=== PATIENT | male | born 1965 | race African-American/Black ===

== ENCOUNTER 2020-08-03 07:01 | Inpatient (IN) | payer SELFPAY ==
[2020-08-03 07:40] LABS: Absolute Lymphocytes (CBC) 2.2 K/uL (0.7-4.9); Basophils % 0.5 % (0-1.3); Lymphocytes % 29.6 % (15.3-44.8); MPV 8.1 fL (7.6-11.3); RBC Red Blood Cell Count 5.55 M/uL (4.33-5.43)
[2020-08-03] MEDS ORDERED: NITROGLYCERIN 0.4 MG/TAB SL ONE ×2 (07:47→08:31)
[2020-08-03] MEDS ORDERED: NA CHLORIDE 0.9% 500 ML ONE (07:52)
[2020-08-03 07:54] LABS: ALT/SGPT 30 U/L (12-78); Albumin 3.8 g/dL (3.4-5.0); Alkaline Phosphatase 77 U/L (45-117); BUN Blood Urea Nitrogen 19 mg/dL (7-18); Bicarbonate 23 mmol/L (21-32); Bilirubin Direct 0.1 mg/dL (0-0.2); Bilirubin Total 0.7 mg/dL (0.2-1.0); Glucose Level 113 mg/dL (74-106); NT PRO-BNP 739 pg/mL (<125); Potassium 3.8 mmol/L (3.5-5.1); Protein, Total 8.1 g/dL (6.4-8.2); Sodium Level 141 mmol/L (136-145); Troponin (Emerg Dept Use Only) < 0.02 ng/mL (0.0-0.045)
[2020-08-03 07:55] LABS: AST/SGOT 22 U/L (15-37); Magnesium 2.2 mg/dL (1.8-2.4)
--- NOTE | 2020-08-03 08:32 | RAD REPORT ---
EXAM DESCRIPTION: RAD - Chest Single View - 08/03/2020 7:48 am CLINICAL HISTORY: CHEST PAIN Chest pain. COMPARISON: No comparisons FINDINGS: Portable technique limits examination quality. The lungs are grossly clear. The heart is normal in size. No displaced fractures. IMPRESSION: No acute intrathoracic process suspected.
--- NOTE | 2020-08-03 08:32 | ER ---
Nurse's Notes [facility] Name: Ángel Benítez Age: 55 yrs Sex: Male : 1965 Arrival Date: 08/03/2020 Time: 07:10 Bed 5 Private MD: Diagnosis: Chest pain, unspecified Presentation: 08/03 07:14 Chief complaint: EMS states: they were toned out for report of pt with chest pain and bb dizziness, pt was diaphoretic on their arrival. Coronavirus screen: At this time, the client does not indicate any symptoms associated with coronavirus-19. Ebola Screen: No symptoms or risks identified at this time. Initial Sepsis Screen: Does the patient meet any 2 criteria? No. Patient's initial sepsis screen is negative. Does the patient have a suspected source of infection? No. Patient's initial sepsis screen is negative. Risk Assessment: Do you want to hurt yourself or someone else? Patient reports no desire to harm self or others. Onset of symptoms was August 03, 2020. Care prior to arrival: IV initiated. 20 GA, in the left antecubital area, Glucose check: 89. 07:14 Method Of Arrival: EMS: [facility] bb 07:14 Acuity: TOMÁS 3 bb Historical: - Allergies: 07:16 No Known Allergies; bb - Home Meds: 07:16 None [Active]; bb - PMHx: 07:16 None; bb - Immunization history:: Adult Immunizations up to date. - Social history:: Smoking status: unknown. - Family history:: not pertinent. - Hospitalizations: : No recent hospitalization is reported. Screenin:44 Abuse screen: Denies threats or abuse. Denies injuries from another. Nutritional sv screening: No deficits noted. Tuberculosis screening: No symptoms or risk factors identified. Fall Risk None identified. Assessment: 07:34 General: Appears in no apparent distress. comfortable, slender, well developed, sv Behavior is calm, cooperative, appropriate for age. Pain: Denies pain. Neuro: Level of Consciousness is awake, alert, obeys commands, Oriented to person, place, time, situation, Gait is steady. Cardiovascular: Patient's skin is warm and dry. Pulses are 3+ in right radial artery and left radial artery Rhythm is sinus rhythm. Respiratory: Airway is patent Respiratory effort is even, unlabored, Respiratory pattern is regular, symmetrical. Derm: Skin is pink, warm \\T\\ dry. 08:16 Reassessment: Patient appears in no apparent distress at this time. No changes from sv previously documented assessment. Patient and/or family updated on plan of care and expected duration. Pain level reassessed. Patient is alert, oriented x 3, equal unlabored respirations, skin warm/dry/pink. Patient denies pain at this time. 09:13 Reassessment: Patient appears in no apparent distress at this time. No changes from sv previously documented assessment. Patient and/or family updated on plan of care and expected duration. Pain level reassessed. Patient is alert, oriented x 3, equal unlabored respirations, skin warm/dry/pink. Patient denies pain at this time. 10:40 Reassessment: Patient appears in no apparent distress at this time. No changes from sv previously documented assessment. Patient and/or family updated on plan of care and expected duration. Pain level reassessed. Patient is alert, oriented x 3, equal unlabored respirations, skin warm/dry/pink. Vital Signs: 07:14 BP 135 / 104; Pulse 74; Resp 16 S; Temp 97.7(O); Pulse Ox 98% on R/A; Weight 85.73 kg bb (R); Height 6 ft. 3 in. (190.50 cm) (R); Pain 2/10; 07:28 BP 118 / 89; Pulse 67; Resp 16; Temp 97.8(TE); Pulse Ox 100% on 2 lpm NC; mh5 08:07 BP 164 / 107; Pulse 65; Resp 16; Pulse Ox 100% ; Pain 0/10; sv 08:27 BP 87 / 60; Pulse 65; Resp 13; Pulse Ox 95% ; sv 09:02 BP 160 / 116; Pulse 63; Resp 16; Pulse Ox 97% on 2 lpm NC; sv 10:40 BP 159 / 117; Pulse 64; Resp 16; Pulse Ox 97% ; sv 11:30 BP 176 / 114; Pulse 66; Resp 16; Pulse Ox 100% on 2 lpm NC; sv 07:14 Body Mass Index 23.62 (85.73 kg, 190.50 cm) bb ED Course: 07:05 EKG completed in triage. Results shown to . bb 07:10 Patient arrived in ED. bb 07:14 Teo Ulrich MD is Attending Physician. rn 07:16 Triage completed. bb 07:16 Arm band placed on Patient placed in an exam room, on a stretcher, on vision mixer, bb on pulse oximetry. 07:24 Keyana Maria, RN is Primary Nurse. sv 07:26 Basic Metabolic Panel Sent. mh5 07:26 CBC with Diff Sent. mh5 07:26 LFT's Sent. mh5 07:26 Magnesium Sent. mh5 07:26 NT PRO-BNP Sent. mh5 07:27 Patient has correct armband on for positive identification. Placed in gown. Bed in low mh5 position. Call light in reach. Side rails up X2. Warm blanket given. radar technician on. Pulse ox on. NIBP on. 07:27 Troponin (emerg Dept Use Only) Sent. mh5 07:27 Initial lab(s) drawn, by me, sent to lab. Maintain EMS IV. Dressing intact. Good blood mh5 return noted. Site clean \\T\\ dry. 07:43 X-ray(s) taken. Oxygen administration via nasal cannula \\T\\ 2L/min. sv 07:46 Awaiting lab results, Awaiting radiology results. sv 08:18 XRAY Chest (1 view) Sent. sv 08:31 Michael Ulrich MD is Hospitalizing Provider. rn 09:09 CT Aorta for Dissection Sent. sv 09:46 COVID-19 : Document "Date of Symptom Onset" if Symptomatic. Sent. sv 10:03 CORONAVIRUS Sent. sv 10:40 Awaiting lab results. sv 12:41 No provider procedures requiring assistance completed. Patient admitted, IV remains in sv place. intact. Administered Medications: 07:34 Drug: NS 0.9% 500 ml Route: IV; Rate: bolus; Site: left antecubital; sv 08:00 Follow up: Response: No adverse reaction; IV Status: Completed infusion; IV Intake: sv 500ml 08:14 Drug: Nitroglycerin 0.4 mg Route: Sublingual; sv 08:20 Follow up: Response: No adverse reaction sv 09:50 Not Given (Physician Discretion): NS 0.9% 500 ml IV at bolus once sv 12:36 Not Given (Patient Refused): fentaNYL (PF) 50 mcg IVP once; RASS on ADMIN: Combtv4, sv Very Agttd3, Agttd2, Rstlss1, AlertClm0, Drwsy-1, Lt Sdtn-2, Mod Sdtn-3, Dp Sdtn-4, UnArsble-5 12:40 Drug: Aspirin Chewable Tablet 324 mg Route: PO; sv 13:10 Follow up: Response: No adverse reaction sv Intake: 08:00 IV: 500ml; Total: 500ml. sv Outcome: 08:31 Decision to Hospitalize by Provider. rn 12:41 Admitted to Tele accompanied by tech, via wheelchair, room 207, with oxygen, with sv chart, Report called to Alyx CUEVAS 12:41 Condition: stable 12:41 Instructed on the need for admit. 13:10 Patient left the ED. sv Signatures: Keyana Maria RN RN sv Ballard, Brenda, RN RN bb Nieto, Roman, MD MD rn Martinez, Maria [facility] Corrections: (The following items were deleted from the chart) 07:31 07:28 BP 118 / 89; Pulse 67bpm; Resp 16bpm; Pulse Ox 100% RA; Temp 97.8F Temporal; mh5 mh5 08:16 07:43 Patient maintains SpO2 saturation greater than 95% on room air. sv sv
--- NOTE | 2020-08-03 08:32 | EDPHYS ---
Physician Documentation [facility] Name: Ángel Benítez Age: 55 yrs Sex: Male : 1965 Arrival Date: 08/03/2020 Time: 07:10 Bed 5 Private MD: ED Physician Teo Ulrich HPI: 08/03 07:36 This 55 yrs old Black Male presents to ER via EMS with complaints of Chest Pain. rn 07:36 The patient or guardian reports chest pain that is located primarily in the substernal rn area. Onset: just prior to arrival. The pain does not radiate. Associated signs and symptoms: Pertinent positives: diaphoresis, Pertinent negatives: abdominal pain, lightheadedness, near syncope, shortness of breath, syncope, vomiting. The chest pain is described as a heaviness. Duration: The patient or guardian reports multiple episodes, that are intermittent. Modifying factors: The symptoms are alleviated by nothing. the symptoms are aggravated by exertion. Severity of pain: At its worst the pain was moderate in the emergency department the pain has improved. The patient has not experienced similar symptoms in the past. Reports chest pain, substernal, non-radiating, assoc with diaphoresis, began while riding his bike. Had similar episode 2 days ago with palpitations and went away. Currently reports pain returning, 10. Doesn't take medication. Never had cardiac evaluation. No recent illness/cough/fever. . Historical: - Allergies: 07:16 No Known Allergies; bb - Home Meds: 07:16 None [Active]; bb - PMHx: 07:16 None; bb - Immunization history:: Adult Immunizations up to date. - Social history:: Smoking status: unknown. - Family history:: not pertinent. - Hospitalizations: : No recent hospitalization is reported. ROS: 07:36 Constitutional: Negative for fever, chills, and weight loss, Eyes: Negative for injury, rn pain, redness, and discharge, Neck: Negative for injury, pain, and swelling, Cardiovascular: Negative for edema Respiratory: Negative for shortness of breath, cough, wheezing, and pleuritic chest pain, Abdomen/GI: Negative for abdominal pain, nausea, vomiting, diarrhea, and constipation, Back: Negative for injury and pain, MS/Extremity: Negative for injury and deformity, Skin: Negative for injury, rash, and discoloration, Neuro: Negative for headache, weakness, numbness, tingling, and seizure. Exam: 07:36 Constitutional: This is a well developed, well nourished patient who is awake, alert, rn diaphoretic Head/Face: Normocephalic, atraumatic. Eyes: Periorbital areas with no swelling, redness, or edema. Cardiovascular: Regular rate and rhythm. No pulse deficits. Respiratory: No increased work of breathing, no retractions or nasal flaring. Abdomen/GI: soft, non-tender Skin: Warm, dry MS/ Extremity: Pulses equal, no cyanosis. Neuro: Awake and alert, GCS 15, oriented to person, place, time, and situation. Vital Signs: 07:14 BP 135 / 104; Pulse 74; Resp 16 S; Temp 97.7(O); Pulse Ox 98% on R/A; Weight 85.73 kg bb (R); Height 6 ft. 3 in. (190.50 cm) (R); Pain 2/10; 07:28 BP 118 / 89; Pulse 67; Resp 16; Temp 97.8(TE); Pulse Ox 100% on 2 lpm NC; mh5 08:07 BP 164 / 107; Pulse 65; Resp 16; Pulse Ox 100% ; Pain 0/10; sv 08:27 BP 87 / 60; Pulse 65; Resp 13; Pulse Ox 95% ; sv 09:02 BP 160 / 116; Pulse 63; Resp 16; Pulse Ox 97% on 2 lpm NC; sv 10:40 BP 159 / 117; Pulse 64; Resp 16; Pulse Ox 97% ; sv 11:30 BP 176 / 114; Pulse 66; Resp 16; Pulse Ox 100% on 2 lpm NC; sv 07:14 Body Mass Index 23.62 (85.73 kg, 190.50 cm) bb MDM: 07:14 Patient medically screened. rn 08:30 ED course: Pt dropped BP after SL nitro, reevaluated, asymptomatic, pending CT aorta rn and admission.. 08/03 07:14 Order name: Basic Metabolic Panel rn 08/03 07:14 Order name: CBC with Diff rn 08/03 07:14 Order name: LFT's rn 08/03 07:14 Order name: Magnesium rn 08/03 07:14 Order name: NT PRO-BNP rn 08/03 07:14 Order name: Troponin (emerg Dept Use Only) rn 08/03 07:46 Order name: CBC with Automated Diff; Complete Time: 08:23 EDMS 08/03 07:55 Order name: Basic Metabolic Panel; Complete Time: 08:23 EDMS 08/03 07:56 Order name: Liver (Hepatic) Function; Complete Time: 08:23 EDMS 08/03 07:56 Order name: Troponin (Emerg Dept Use Only); Complete Time: 08:23 EDMS 08/03 07:56 Order name: NT PRO-BNP; Complete Time: 08:23 EDMS 08/03 07:56 Order name: Magnesium; Complete Time: 08:23 EDMS 08/03 09:13 Order name: COVID-19 : Document "Date of Symptom Onset" if Symptomatic. sv 08/03 10:03 Order name: CORONAVIRUS EDMS 08/03 07:14 Order name: XRAY Chest (1 view) rn 08/03 07:14 Order name: EKG; Complete Time: 07:15 rn 08/03 07:14 Order name: Cardiac monitoring; Complete Time: 07:17 rn 08/03 07:14 Order name: EKG - Nurse/Tech; Complete Time: 07:17 rn 08/03 07:14 Order name: IV Saline Lock; Complete Time: 07:17 rn 08/03 07:14 Order name: Labs collected and sent; Complete Time: 07:27 rn 08/03 07:14 Order name: O2 Per Protocol; Complete Time: 07:17 rn 08/03 08:24 Order name: CT Aorta for Dissection rn 08/03 08:33 Order name: RAD; Complete Time: 10:02 EDMT 08/03 09:09 Order name: CT; Complete Time: 10:02 EDMT 08/03 10:58 Order name: SARS-COV-2 RT PCR EDMS 08/03 07:14 Order name: O2 Sat Monitoring; Complete Time: 07:17 rn Administered Medications: 07:34 Drug: NS 0.9% 500 ml Route: IV; Rate: bolus; Site: left antecubital; sv 08:00 Follow up: Response: No adverse reaction; IV Status: Completed infusion; IV Intake: sv 500ml 08:14 Drug: Nitroglycerin 0.4 mg Route: Sublingual; sv 08:20 Follow up: Response: No adverse reaction sv 09:50 Not Given (Physician Discretion): NS 0.9% 500 ml IV at bolus once sv 12:36 Not Given (Patient Refused): fentaNYL (PF) 50 mcg IVP once; RASS on ADMIN: Combtv4, sv Very Agttd3, Agttd2, Rstlss1, AlertClm0, Drwsy-1, Lt Sdtn-2, Mod Sdtn-3, Dp Sdtn-4, UnArsble-5 12:40 Drug: Aspirin Chewable Tablet 324 mg Route: PO; sv 13:10 Follow up: Response: No adverse reaction sv Disposition: 08/03/20 08:31 Hospitalization ordered by Michael Ulrich for Observation. Preliminary diagnosis is Chest pain, unspecified. - Bed requested for Telemetry/MedSurg (observation). - Status is Observation. sv - Condition is Stable. - Problem is new. - Symptoms have improved. Signatures: Dispatcher [employer] EDMS Keyana Maria RN RN sv Woody, Diana, RN RN dw Ballard, Brenda, RN RN bb Nieto, Roman, MD MD rn Smirch, Shelby, RN RN ss Corrections: (The following items were deleted from the chart) 12:09 08:31 Hospitalization Ordered by Michael Ulrich MD for Observation. Preliminary ss diagnosis is Chest pain, unspecified. Bed requested for Telemetry/MedSurg (observation). Status is Observation. Condition is Stable. Problem is new. Symptoms have improved. rn 12:13 12:09 08/03/2020 08:31 Hospitalization Ordered by Michael Ulrich MD for Observation. dw Preliminary diagnosis is Chest pain, unspecified. Bed requested for Telemetry/MedSurg (observation). Status is Observation. Condition is Stable. Problem is new. Symptoms have improved. ss 13:10 12:13 08/03/2020 08:31 Hospitalization Ordered by Michael Ulrich MD for Observation. sv Preliminary diagnosis is Chest pain, unspecified. Bed requested for Telemetry/MedSurg (observation). Status is Observation. Condition is Stable. Problem is new. Symptoms have improved. dw
--- NOTE | 2020-08-03 09:08 | RAD REPORT ---
EXAM DESCRIPTION: CT - Angio Aorta For Dissection - 08/03/2020 8:51 am CLINICAL HISTORY: Chest pain radiating to the back. CHEST PAIN COMPARISON: No comparisons TECHNIQUE: CT angiography of the aorta was performed with MIPs. All CT scans are performed using dose optimization technique as appropriate and may include automated exposure control or mA/KV adjustment according to patient size. FINDINGS: A left aortic arch is present with normal branching pattern of the great vessels.No acute aortic finding is seen such as aneurysm, penetrating ulcer or dissection. The celiac axis, SMA, LIZZIE and renal arteries are patent. No evidence of pulmonary embolism. The lungs are clear. The liver demonstrates no focal mass or biliary dilatation.Small fat containing umbilical hernia.The spleen, pancreas, adrenal glands and kidneys are within normal limits for arterial phase imaging. No bowel obstruction, free fluid or abscess.No pathologic enlarged lymphadenopathy identified.Urinary bladder is mildly thickened. No fracture or worrisome bone lesion seen. IMPRESSION: No acute aortic finding is demonstrated. Thickened urinary bladder, suggest correlation for possible cystitis.
[2020-08-03] MEDS ORDERED: ASPIRIN EC 81 MG TAB PO ONE (09:49)
--- NOTE | 2020-08-03 09:55 | P.HP ---
Certification for Inpatient Patient admitted to: Observation With expected LOS: <2 Midnights Practitioner: I am a practitioner with admitting privileges, knowledge of patient current condition, hospital course, and medical plan of care. Services: Services provided to patient in accordance with Admission requirements found in Title 42 Section 412.3 of the Code of Federal Regulations Patient History Date of Service: 08/03/20 Primary Care Provider: none Reason for admission: chest pain History of Present Illness: 55yo M, presents to ED due to chest pain with exertion. Patient was riding bicycle to work this morning at ~530am, pain began ~10min into the ride. Pain has been somewhat intermittent all day today. Improved temporarily with rest, but returned after trying to ride bike back home. Associated with lightheadedness sensation. Chest pain described more of a pressure at midsternum. Has been many years since he has seen a doctor. Reports was told many years ago he had high blood pressure. Does not take any medication, no OTC meds as well. smoked tobacco briefly, quite ~15yrs ago. no alcohol. Father from [place] in his 70s. He did have an episode of fast heart rate / palpitations ~2 days ago. He stayed home from work and relaxed since then. In the ED, CXR and CT thorax was negative for acute process, trop negative, EKG with signs of LVH. He was noted to be hypertensive 140-170/90-107. he was given sublingual nitro and at time of my exam, denied any chest pain/pressure. - Past Medical/Surgical History -: HTN Past Surgical History: Patient denies surgical history - Family History Father -: Heart disease - Social History Smoking Status: Former smoker (quit ~15yrs ago) Alcohol use: No Place of Residence: Home Review of Systems 10-point ROS is otherwise unremarkable Physical Examination - Physical Exam General: Alert, In no apparent distress, Oriented x3 HEENT: EOMI, Sclerae nonicteric Neck: Supple, JVD not distended Respiratory: Clear to auscultation bilaterally, Normal air movement Cardiovascular: No edema, Regular rate/rhythm, Normal S1 S2 Capillary refill: <2 Seconds Gastrointestinal: Soft and benign, Non-distended, No tenderness Musculoskeletal: No swelling, No erythema, No tenderness Integumentary: No rashes, No breakdown Neurological: Normal speech, Normal strength at 5/5 x4 extr, Normal affect - Studies Laboratory Data (last 24 hrs) 08/03/20 07:22: WBC 7.60, Hgb 14.9, Hct 45.0, Plt Count 393 08/03/20 07:22: Sodium 141, Potassium 3.8, BUN 19 H, Creatinine 1.14, Glucose 113 H, Magnesium 2.2, Total Bilirubin 0.7, AST 22, ALT 30, Alkaline Phosphatase 77 Assessment and Plan - Advance Directives Does patient have a Living Will: No Does patient have a Durable POA for Healthcare: No Physician Review Additional Text: Problem List Chest pain HTN, uncontrolled -obs, r/o ACS -trend trop -aspirin, metoprolol, lovenox, statin -HCTZ for HTN, titrate as needed -cardiology consulted -will obtain echo VTE: lovenox Code: Full Dispo: anticipate dc home in ~24hrs pending further eval Time Spent Managing Pts Care (In Minutes): 60
[2020-08-03] MEDS ORDERED: hydroCHLOROthiazide 25 MG TAB PO SCH (10:30)
[2020-08-03] MEDS ORDERED: ASPIRIN 81 MG CHEWABLE TABLET ONE (13:04)
[2020-08-03 13:31] VITALS: BMI 27.2
[2020-08-03] MEDS: METOPROLOL TAR 25 MG TAB PO SCH ×2 (13:54→17:25)
[2020-08-03] MEDS ORDERED: MORPHINE 2 MG/ML SYR IV PRN (15:17)
[2020-08-03 15:31] LABS: Urine Appearance CLEAR (Clear); Urine Bilirubin NEGATIVE (Negative); Urine Blood TRACE (Negative); Urine Color YELLOW (Yellow); Urine Glucose NEGATIVE (Negative); Urine Protein NEGATIVE (Negative); Urine Specific Gravity >=1.030 (1.005-1.030); Urine pH 5.5 (5.0-7.0)
[2020-08-03 15:38] LABS: Urine Microscopic Reflex ORDER UMIC
[2020-08-03] MEDS: HYDRALAZINE HCL 20 MG/ML VIAL IV PRN (15:48)
[2020-08-03 15:55] LABS: Urine Bacteria <20 /HPF (NONE SEEN); Urine RBC <5 /HPF (NONE SEEN)
[2020-08-03] MEDS ORDERED: CLOPIDOGREL 75 MG TABLET PO ONE (16:15)
[2020-08-03 20:03] LABS: BUN Blood Urea Nitrogen 17 mg/dL (7-18); Bicarbonate 23 mmol/L (21-32); Glucose Level 111 mg/dL (74-106); Potassium 4.2 mmol/L (3.5-5.1); Sodium Level 140 mmol/L (136-145)
[2020-08-03] MEDS ORDERED: ENOXAPARIN 100 MG/ML SYR SQ SCH (21:00)
[2020-08-03] MEDS ORDERED: POTASSIUM 25 MEQ EFFERV TAB PO ONE (21:00)
[2020-08-03] MEDS ORDERED: KCL 20 MEQ/100 mL IVPB 20 MEQ/100 ML BAG IV SCH (21:00)
--- NOTE | 2020-08-03 22:08 | CON ---
Date of Consultation: 08/03/2020 Reason For Consultation: Non-ST elevation myocardial infarction. History Of Present Illness: Mr. Benítez is a 55-year-old black male, who came in with exertional chest pain when he was riding his bike. He was hypertensive. When he came in it was 164/107. Chest pain is midsternal. It does not radiate. He had some diaphoresis, shortness of breath, but denies any n ausea, vomiting, PND, orthopnea, pedal edema, palpitation, or syncope. EKG showed left ventricular h ypertrophy, but his troponin was positive at 0.6 consistent with non-ST elevation myocardial infarcti on. Past Medical History: Otherwise negative. Allergies: NONE. Review of Systems: Negative. Social History: Negative. Medications: None. Family History: Noncontributory. Physical Examination: Vital Signs: His blood pressure was 135/104. HEENT: Negative. Neck: Supple without any bruit, lymphadenopathy, JVD, or thyromegaly. Chest: Clear to auscultation and percussion. Cardiac: Revealed a regular rhythm and rate with an S4 gallops. No gallops or rubs. Abdomen: Benign. Extremities: Reveal no clubbing, cyanosis, or edema. Diagnostic Data: EKG showed LVH. Chest x-ray was normal. CT dissection was normal. Troponin was p ositive. His creatinine was 1.4. Hemoglobin was normal. BNP was 739. Impression And Plan: The patient with chest pain and [id number] myocardial infarction. Plan f or heart catheterization tomorrow to define his coronary anatomy. The patient understands the risks and the benefits of the procedure and he agrees to proceed. He is presently , Plavix, and Lovenox. We will hold Lovenox tonight. Case was discussed with Dr. Ulrich. NB/MODL Voice ID: [id number] Report ID: [id number]
[2020-08-04] MEDS: HYDRALAZINE HCL 20 MG/ML VIAL IV PRN ×2 (00:23→18:35)
[2020-08-04 05:42] LABS: Absolute Lymphocytes (CBC) 1.9 K/uL (0.7-4.9); Basophils % 0.5 % (0-1.3); Hematocrit 44.1 % (39.6-49.0); Lymphocytes % 24.4 % (15.3-44.8); MPV 8.2 fL (7.6-11.3)
[2020-08-04 05:45] LABS: ALT/SGPT 34 U/L (12-78); AST/SGOT 40 U/L (15-37); Albumin 3.7 g/dL (3.4-5.0); Alkaline Phosphatase 71 U/L (45-117); BUN Blood Urea Nitrogen 17 mg/dL (7-18); Bicarbonate 26 mmol/L (21-32); Bilirubin Total 0.9 mg/dL (0.2-1.0); Glucose Level 97 mg/dL (74-106); HDL Cholesterol 39 mg/dL (40-60); LDL Cholesterol, Calculated 168 (<130); Magnesium 2.4 mg/dL (1.8-2.4); Potassium 3.7 mmol/L (3.5-5.1); Protein, Total 8.2 g/dL (6.4-8.2); Sodium Level 139 mmol/L (136-145)
[2020-08-04] MEDS: METOPROLOL TAR 25 MG TAB PO SCH ×2 (07:30→18:23)
[2020-08-04] MEDS: hydroCHLOROthiazide 12.5 MG CAP PO SCH (08:26)
[2020-08-04] MEDS: ASPIRIN EC 81 MG TAB PO SCH (08:26)
--- NOTE | 2020-08-04 08:30 | ECHO ---
HEIGHT: 6 ft 3 in WEIGHT: 218 lb 3.2 oz DATE OF STUDY: 08/03/[address]: Michael Ulrich MD 2-DIMENSIONAL: YES M.MODE: YES DOPPLER: YES COLOR FLOW: YES TDS: NO PORTABLE: NO DEFINITY: NO BUBBLE STUDY: NO DIAGNOSIS: CHEST PAIN CARDIAC HISTORY: CATHERIZATION: NO SURGERY: NO PROSTHETIC VALVE: NO PACEMAKER: NO MEASUREMENTS (cm) DIASTOLIC (NORMALS) SYSTOLIC (NORMALS) IVSd 1.1 (0.6-1.2) LA Diam 3.1 (1.9-4.0) LVEF 54% LVIDd 3.7 (3.5-5.7) LVIDs 2.7 (2.0-3.5) %FS 27% LVPWd 1.2 (0.6-1.2) Ao Diam 3.4 (2.0-3.7) 2 DIMENSIONAL ASSESSMENT: RIGHT ATRIUM: NORMAL LEFT ATRIUM: NORMAL RIGHT VENTRICLE: NORMAL LEFT VENTRICLE: NORMAL TRICUSPID VALVE: NORMAL MITRAL VALVE: NORMAL PULMONIC VALVE: NORMAL AORTIC VALVE: NORMAL PERICARDIAL EFFUSION: NONE AORTIC ROOT: NORMAL LEFT VENTRICULAR WALL MOTION: NORMAL. DOPPLER/COLOR FLOW: NORMAL. COMMENTS: NORMAL 2D ECHO WITH DOPPLER. NO WALL MOTION ABNORMALITY. NO EFFUSION. TECHNOLOGIST: SOY VAUGHN
--- NOTE | 2020-08-04 08:44 | P.PN ---
Subjective Date of Service: 08/04/20 Primary Care Provider: none Chief Complaint: chest pain Subjective: Other (no chest pain since yesterday evening. feels ok, occasional headache. troponin trending up) Review of Systems 10-point ROS is otherwise unremarkable Physical Examination - Vital Signs Temperature: 97.9 F Blood Pressure: 139/85 Pulse: 72 Respirations: 16 Pulse Ox (%): 95 - Physical Exam General: Alert, In no apparent distress, Oriented x3 HEENT: Sclerae nonicteric Neck: Supple Respiratory: Clear to auscultation bilaterally, Normal air movement Cardiovascular: No edema, Regular rate/rhythm, Normal S1 S2, No murmurs Gastrointestinal: Soft and benign, Non-distended, No tenderness Integumentary: No rashes Neurological: Normal speech, Normal strength at 5/5 x4 extr, Normal affect - Studies Laboratory Data (last 24 hrs) 08/04/20 05:07: Sodium 139, Potassium 3.7, BUN 17, Creatinine 0.90, Glucose 97, Magnesium 2.4, Total Bilirubin 0.9, AST 40 H, ALT 34, Alkaline Phosphatase 71, Triglycerides 119, Cholesterol 231 H, HDL Cholesterol 39 L, Cholesterol/HDL Ratio 5.92 08/04/20 05:07: WBC 7.70, Hgb 14.1, Hct 44.1, Plt Count 358 08/04/20 01:37: Troponin I 3.78 H* 08/03/20 19:18: Sodium 140, Potassium 4.2, BUN 17, Creatinine 0.96, Glucose 111 H 08/03/20 19:18: Troponin I 2.90 H* D 08/03/20 14:03: Troponin I 0.62 H* Assessment & Plan Physician Review Additional Text: Problem List NSTEMI HTN, uncontrolled -troponin increasing, pt continued with chest pain yesterday, resolved now -aspirin, metoprolol, therapeutic lovenox, statin, plavix given yesterday -cardiology consulted, echo obtained, patient for cardiac cath today -HCTZ for HTN, some improvement VTE: lovenox 1mg/kg (held this AM for cath) Code: Full Dispo: anticipate dc home in next ~24hrs pending cath results social studies department chair consulted, patient without insurance, asking for PCP recommendations/resources Time Spent Managing Pts Care (In Minutes): 35
[2020-08-04] MEDS ORDERED: ENOXAPARIN 40 MG/0.4 ML SQ SCH (09:00)
[2020-08-04] MEDS ORDERED: HEPA 1000U/500MLS 1,000 UNIT/500 ML BAG IV ONE (09:25)
[2020-08-04 09:50] LABS: Protime INR 1.06
--- NOTE | 2020-08-04 10:36 | EKG ---
Test Date: 2020-08-03 Test Time: 07:05:33 Supervisor Marble: NORIS MEASUREMENT RESULTS: Intervals: Rate: 78 SC: 142 QRSD: 90 QT: 384 QTc: 437 [place]: P: 63 SC: 142 QRS: 56 T: 51 INTERPRETIVE STATEMENTS: Normal sinus rhythm Moderate voltage criteria for LVH, may be normal variant Borderline ECG No previous ECG available for comparison Electronically Signed On 08-04-20 10:32:10 CDT by Marco Sanchez
[2020-08-04] MEDS ORDERED: NA CHLORIDE 0.9% 500 ML ONE (11:29)
[2020-08-04] MEDS ORDERED: MIDAZOLAM HCL 2 MG/2 ML INJ ONE (11:44)
[2020-08-04] MEDS ORDERED: FENTANYL CITR 100 MCG/2 ML ONE (11:44)
[2020-08-04] MEDS ORDERED: LIDOCAINE 1% 20 ML MDV ONE (11:45)
[2020-08-04] MEDS ORDERED: ATROPINE SULF 1 MG/10 ML SYR IV ONE (11:45)
[2020-08-04] MEDS ORDERED: NA CHLORIDE 0.9% 50 ML ONE (11:45)
[2020-08-04] MEDS ORDERED: NITROGLYCERIN 100 MCG/ML SYR (for cath lab use only) IV ONE (12:28)
[2020-08-04] MEDS ORDERED: NITROGLYCERIN/D5W 25 MG/250 ML BTL IV ONE (12:29)
[2020-08-04] MEDS ORDERED: PRASUGREL (EFFIENT) 10 MG TAB ONE (12:40)
--- NOTE | 2020-08-04 17:36 | P.DS ---
Admission Date: 08/03/20 Discharge Date: 08/05/20 Primary Care Provider: none Disposition: ROUTINE DISCHARGE Discharge Condition: GOOD Reason for Admission: NSTEMI Consultations: Cardiology - Dr. Sanchez Procedures: CXR (08/03): The lungs are grossly clear. The heart is normal in size. No displaced fractures. IMPRESSION: No acute intrathoracic process suspected. CT dissection (08/03): FINDINGS: A left aortic arch is present with normal branching pattern of the great vessels.No acute aortic finding is seen such as aneurysm, penetrating ulcer or dissection. The celiac axis, SMA, LIZZIE and renal arteries are patent. No evidence of pulmonary embolism. The lungs are clear. The liver demonstrates no focal mass or biliary dilatation.Small fat containing umbilical hernia.The spleen, pancreas, adrenal glands and kidneys are within normal limits for arterial phase imaging. No bowel obstruction, free fluid or abscess.No pathologic enlarged lymphadenopathy identified.Urinary bladder is mildly thickened. No fracture or worrisome bone lesion seen. IMPRESSION: No acute aortic finding is demonstrated. Thickened urinary bladder, suggest correlation for possible cystitis. TTE (08/03): NORMAL 2D ECHO WITH DOPPLER. NO WALL MOTION ABNORMALITY. NO EFFUSION. Cardiac Cath (08/04): final report pending at time of discharge. patient underwent ELENA [address] Sanchez Problem List NSTEMI, s/p stent placement (08/05/20) Post-op R fem hematoma HTN, uncontrolled Brief History of Present Illness: 55yo M, presents to ED due to chest pain with exertion. Patient was riding bicycle to work this morning at ~530am, pain began ~10min into the ride. Pain has been somewhat intermittent all day today. Improved temporarily with rest, but returned after trying to ride bike back home. Associated with lightheadedness sensation. Chest pain described more of a pressure at midsternum. Has been many years since he has seen a doctor. Reports was told many years ago he had high blood pressure. Does not take any medication, no OTC meds as well. smoked tobacco briefly, quite ~15yrs ago. no alcohol. Father from [place] in his 70s. He did have an episode of fast heart rate / palpitations ~2 days ago. He stayed home from work and relaxed since then. In the ED, CXR and CT thorax was negative for acute process, trop negative, EKG with signs of LVH. He was noted to be hypertensive 140-170/90-107. he was given sublingual nitro and at time of my exam, denied any chest pain/pressure. Hospital Course: Troponin trended up to 3, Cardiology consulted, EKG with LVH changes. Patient consistent with NSTEMI. He was taken for cardiac cath on 08/04 and underwent stent placement x1. He did well post-operatively, however developed a small hematoma at his R femoral access site despite appropriate bed rest. May have been impacted by his hypertension. Hematoma improved /nearly resolved after pressure and prolonged bed rest. On day of discharge he was without chest pain, breathing comfortably, and overall doing well. Follow up: PCP in 3- 5days, given list and papers with resources for available clinics Cardiology - ~3-4 weeks Medications Aspirin, Plavix, Statin, Metoprolol HCTZ and lisinopril started for his severe, uncontrolled HTN Vital Signs/Physical Exam: Temp Pulse Resp BP Pulse Ox 97.4 F 69 16 136/76 95 08/04/20 13:10 08/04/20 14:55 08/04/20 14:55 08/04/20 14:55 08/04/20 08:43 General: Alert, In no apparent distress, Oriented x3 HEENT: Mucous membr. moist/pink, EOMI, Sclerae nonicteric Neck: Supple, JVD not distended Respiratory: Clear to auscultation bilaterally, Normal air movement Cardiovascular: No edema, Normal pulses, Regular rate/rhythm, Normal S1 S2 Gastrointestinal: Soft and benign, Non-distended, No tenderness Musculoskeletal: No erythema, No tenderness, Other (small, soft, hematoma in R groin) Integumentary: No rashes Neurological: Normal speech, Normal affect Laboratory Data at Discharge: WBC 7.70 K/uL (4.3-10.9) 08/04/20 05:07 Hgb 14.1 g/dL (13.6-17.9) 08/04/20 05:07 Hct 44.1 % (39.6-49.0) 08/04/20 05:07 Plt Count 358 K/uL (152-406) 08/04/20 05:07 PT 12.2 SECONDS (9.5-12.5) 08/04/20 09:34 INR 1.06 08/04/20 09:34 APTT 32.5 SECONDS (24.3-36.9) 08/04/20 09:34 Sodium 139 mmol/L (136-145) 08/04/20 05:07 Potassium 3.7 mmol/L (3.5-5.1) 08/04/20 05:07 BUN 17 mg/dL (7-18) 08/04/20 05:07 Creatinine 0.90 mg/dL (0.55-1.3) 08/04/20 05:07 Glucose 97 mg/dL (74-106) 08/04/20 05:07 Magnesium 2.4 mg/dL (1.8-2.4) 08/04/20 05:07 Total Bilirubin 0.9 mg/dL (0.2-1.0) 08/04/20 05:07 AST 40 U/L (15-37) H 08/04/20 05:07 ALT 34 U/L (12-78) 08/04/20 05:07 Alkaline Phosphatase 71 U/L (45-117) 08/04/20 05:07 Troponin I 3.78 ng/mL (0.0-0.045) H* 08/04/20 01:37 Triglycerides 119 mg/dL (<150) 08/04/20 05:07 Cholesterol 231 mg/dL (<200) H 08/04/20 05:07 HDL Cholesterol 39 mg/dL (40-60) L 08/04/20 05:07 Cholesterol/HDL Ratio 5.92 08/04/20 05:07 Home Medications: Aspirin [Aspirin EC 81 MG] 81 mg PO DAILY 30 Days #30 tablet. 08/04/20 Atorvastatin Calcium 20 mg PO BEDTIME 30 Days #30 tablet 08/04/20 Clopidogrel Bisulfate [Plavix] 75 mg PO DAILY 30 Days #30 tablet 08/04/20 Metoprolol Tartrate [Lopressor*] 12.5 mg PO BID 30 Days #30 tab 08/04/20 hydroCHLOROthiazide [Hydrochlorothiazide*] 12.5 mg PO DAILY 30 Days #30 cap 08/04/20 lisinopriL [Lisinopril] 10 mg PO DAILY 30 Days #30 tablet 08/05/20 New Medications: Aspirin [Aspirin EC 81 MG] 81 mg PO DAILY 30 Days #30 tablet. Atorvastatin Calcium 20 mg PO BEDTIME 30 Days #30 tablet hydroCHLOROthiazide [Hydrochlorothiazide*] 12.5 mg PO DAILY 30 Days #30 cap lisinopriL [Lisinopril] 10 mg PO DAILY 30 Days #30 tablet Metoprolol Tartrate [Lopressor*] 12.5 mg PO BID 30 Days #30 tab Clopidogrel Bisulfate [Plavix] 75 mg PO DAILY 30 Days #30 tablet Physician Discharge Instructions: PROBLEM: Chest pain with stent GOAL: Clear understanding of disease process INSTRUCTIONS: Your chest pain was found to be due to blockage in your coronary artery. You had a coronary artery stent placed by Dr. Sanchez. You were also found to have severe high blood pressure that responoded well to medication. You are discharged with multiple new prescriptions. Follow up with your PCP in 3-5 days. Monitor your blood pressure at home and take readings to your PCP for further adjustments in your medication. Follow up with Dr. Sanchez in a few weeks. Diet: heart healthy Activity: As tolerated If you have any questions regarding your stay call [phone] If your symptoms worsen call 911 or go to the ED. Diet: AHA Activity: Ad iglesia Followup: Marco Sanchez MD [ACTIVE - CAN ADMIT] - NONE,NONE [Primary Care Provider] - Time spent managing pt's care (in minutes): 45
[2020-08-04 20:37] VITALS: O2SAT 97
[2020-08-05 05:50] VITALS: BP 142/80
[2020-08-05] MEDS: METOPROLOL TAR 25 MG TAB PO SCH (06:00)
[2020-08-05 07:50] LABS: Hematocrit 42.3 % (39.6-49.0); RBC Red Blood Cell Count 5.17 M/uL (4.33-5.43)
--- NOTE | 2020-08-05 08:12 | EKG ---
Test Date: 2020-08-03 Test Time: 15:28:43 International Banker: BARBIE MEASUREMENT RESULTS: Intervals: Rate: 61 AK: 158 QRSD: 92 QT: 436 QTc: 438 [place]: P: 52 AK: 158 QRS: 59 T: 52 INTERPRETIVE STATEMENTS: Normal sinus rhythm Voltage criteria for left ventricular hypertrophy Early repolarization Abnormal ECG Compared to ECG 08/03/2020 07:05:33 Early repolarization now present Electronically Signed On 08-05-20 08:09:49 CDT by Marco Sanchez
[2020-08-05 08:13] LABS: BUN Blood Urea Nitrogen 20 mg/dL (7-18); Bicarbonate 24 mmol/L (21-32); Glucose Level 87 mg/dL (74-106); Magnesium 2.3 mg/dL (1.8-2.4); Potassium 3.9 mmol/L (3.5-5.1); Sodium Level 137 mmol/L (136-145)
[2020-08-05] MEDS ORDERED: lisinopriL 10 MG TAB PO SCH (09:00)
[2020-08-05] MEDS: ASPIRIN EC 81 MG TAB PO SCH (09:37)
[2020-08-05] MEDS: hydroCHLOROthiazide 12.5 MG CAP PO SCH (09:37)
[2020-08-05 09:48] VITALS: TEMP 97.6
--- NOTE | 2020-08-06 16:17 | OP ---
Date of Procedure: 08/04/2020 Surgeon: Marco Sanchez MD Waste Removalist: Mr. Jay Zuniga. Procedures Performed: Left heart catheterization, selective coronary arteriogram, primary stent of a large diagonal. Indication: Jeyson is a 55-year-old, who came in with non-ST elevation myocardial infarction, hyperte nsion, has a history of dyslipidemia, brought to the cardiac cath technician because of elevated troponin. Procedure In Detail: In the cardiac cath technician, he was prepped and draped in routine sterile fashion. Given V ersed and fentanyl for sedation. A 6-Hebrew sheath was introduced in the right common femoral artery successfully. Angio-Seal was used to close the case after the case was done. The Meghan catheter, left and right, were used to do the heart catheterization. He was found to have a normal LAD. He r eally had more of a dual LAD system with a 70% to 80% proximal stenosis in the first diagonal, which was very large. The circumflex was normal. His RCA was normal. Decided to proceed. We had to use a JR4 guide 6-Hebrew with side hole to cannulate the left main. A [place] wire was used to cross the lesion successfully. A 2.5 x 20 Synergy stent was placed at 14 atmospheres with 0% residual. The pa tient tolerated the procedure well. The patient's total conscious sedation was 60 minutes. The og ent received Angiomax, aspirin, and Effient during the procedure. Final Diagnoses: Coronary artery disease, hypertension, status post non-ST elevation myocardial infa rction, status post successful primary stent of the large diagonal. Plan: The patient will be at bedrest for about 2 hours. He will remain in the hospital for about 6 hours. Hopefully, send him home tonight if he does not have any complication. He will be going home on aspirin, Plavix, beta-marquita, and statin. The case was discussed with the primary care physician . MARISOL/FER Voice ID: [id number] Report ID: [id number]
--- NOTE | 2020-08-07 10:30 | PN ---
Date of Progress Note: 08/05/2020 Subjective: Mr. Benítez was taken to the corn lab technician on 08/04/2020, underwent a heart catheterization and underwent a 2.5 x 20 mm Synergy stent of very large diagonal. He was supposed to go home that same day, but developed a right groin hematoma overnight. This was compressed with hand pressure on 08/05. His hematoma has resolved. He had some ecchymosis. No cardiac symptoms. No chest pain. In sinus rhythm. We will plan to send him home today on aspirin, Plavix, beta-marquita, and a statin. I will see him in the office in the very near future. MARISOL/FER Voice ID: [id number] Report ID: [id number]
== END 2020-08-05 12:11 | disposition home or self-care (01) | DRG 247 ==
LOC: ER 07:01 → ERHOLD 09:43 → 2ND 12:41 → OBSVTOIN 08-04 07:31
PROVIDERS: ADMIT Hospitalist; ATTEND Hospitalist
PROC: 027034Z Dilation of Coronary Artery, One Artery with Drug-eluting Intraluminal Device, Percutaneous Approach (ICD-10-PCS; principal; 2020-08-04)
PROC: B201YZZ Plain Radiography of Multiple Coronary Arteries using Other Contrast (ICD-10-PCS; 2020-08-04)
DX: I21.4 Non-ST elevation (NSTEMI) myocardial infarction (principal); I97.630 Postprocedural hematoma of a circulatory system organ or structure following a cardiac catheterization; Y83.8 Other surgical procedures as the cause of abnormal reaction of the patient, or of later complication, without mention of misadventure at the time of the procedure; Y71.8 Miscellaneous cardiovascular devices associated with adverse incidents, not elsewhere classified; Y92.234 Operating room of hospital as the place of occurrence of the external cause; I10 Essential (primary) hypertension; I25.10 Atherosclerotic heart disease of native coronary artery without angina pectoris; Z20.822 Contact with and (suspected) exposure to COVID-19
CPT/HCPCS: 36415; 71045; 71275; 74175; 80048; 80053; 80061; 80076; 81003; 81015; 83735; 83880; 84443; 84484; 85025; 85027; 85347; 85610; 85730; 92928; 93005; 93306; 93454; 94760; 99285; C1725; C1760; C1877; C1893; G0378; J0360; J0583; J1644; J1650; J2250; J3010; J7040; Q9967; U0003